=== PATIENT | female | born 1980 | race Caucasian/White ===

== ENCOUNTER 2024-11-22 19:53 | Emergency (ER) | payer MEDICAID, SELFPAY ==
[2024-11-22] VITALS (7 sets, daily range): BP systolic 98–115; BP diastolic 60–69; PULSE 77–114; TEMP 37.5–39.2; O2SAT 91–95
--- NOTE | 2024-11-22 20:14 | ED_ITS ---
HPI - URI/Sore Throat General Chief Complaint: Upper Respiratory Infection Stated Complaint: SOB, COUGHING, ACHING Time Seen by Provider: 11/22/24 20:10 Source: patient History of Present Illness HPI Narrative: multiple substance use disorder including smoking crack cocaine and snorting fentanyl. Came here from [facility]. Smokes cigarettes and states past history of pneumonia. Complains of coughing more than her usual. Now has left sided rib pain from cough. Has a fever also. No abdominal pain but does feel short of breath. past IVDA Related Data Allergies Allergy/AdvReac Type Severity Reaction Status Date / Time diphenhydramine (From Allergy Severe Anaphylaxis Verified 11/22/24 20:06 Benadryl) Sulfa (Sulfonamide Allergy Severe Hives Verified 11/22/24 20:06 Antibiotics) Review of Systems ROS Status of ROS 10 or more systems reviewed and unremark able except as noted in history and below PFSH PFSH Social History Little interest or pleasure in doing things: not at all Feeling down, depressed, or hopeless: not at all Exam Constitutional Vital Signs, click to edit/add: Last Vital Signs Temp 99.5 F 11/22/24 21:41 Pulse 77 11/22/24 23:03 Resp 20 11/22/24 23:03 BP 109/69 11/22/24 23:03 Pulse Ox 95 11/22/24 23:03 O2 Del Method Room Air 11/22/24 23:03 Common normals: no apparent distress, oriented x3, no limitations and alert HENMT Common normals: normocephalic and head/scalp atraumatic Eye Common normals: EOMs intact bilaterally and conjunctivae normal Chest Other: left chest wall tender Respiratory Common normals: normal respiratory effort, no retractions and no use of accessory muscles Other: faint rhonchi right chest Cardio Common normals: regular rate, regular rhythm, S1 normal heart sound and S2 normal heart sound GI Common normals: Normal to inspection, nondistended, normoactive bowel sounds present, soft to palpation and non-tender Extremity Common normals: normal to inspection and full ROM Neuro Common normals: oriented x3, CN's II-XII intact bilaterally, moves all extremities and no focal motor deficits Psych Appearance: grossly normal Course Vital Signs Vital signs: Vital Signs Temperature 102.6 F H 11/22/24 20:01 Pulse Rate 114 H 11/22/24 20:01 Respiratory Rate 20 11/22/24 20:01 Blood Pressure 112/68 11/22/24 20:01 Pulse Oximetry 92 L 11/22/24 20:01 Oxygen Delivery Method Room Air 11/22/24 20:01 Temperature 99.5 F 11/22/24 21:41 Pulse Rate 77 11/22/24 23:03 Respiratory Rate 20 11/22/24 23:03 Blood Pressure 109/69 11/22/24 23:03 Pulse Oximetry 95 11/22/24 23:03 Oxygen Delivery Method Room Air 11/22/24 23:03 MDM - URI/Sore Throat MDM Narrative Medical decision making narrative: history of substance abuse. Patient at the local detox center. Presents here ill couple of days with cough and feeling short of breath. RA pulse ox 95%. RR 20 and no sign of respiratory distress. Fever responded nicely to ibuprofen and tachycardia resolved after hydration. cxray with bilat infiltrates. Patient states before she came here the detox center checked her for COVID19 and it was neg. She did not want to repeat COVID 19 testing here. Patient advised that she has extensive pneumonia in both chest. She however is not wanting to stay over night. Given dose of Rocephin and zithomax. At discharge she was resting comfortably. Adivsed close follow up and the need to return if she feel more short of breath. Discharged with a prescription of zpak and ceftin Lab Data Labs: Lab Results 11/22/24 Range/Units 20:27 WBC 10.8 (4.0-11.0) 10^3/uL RBC 4.84 (4.20-5.40) 10^6/uL Hgb 14.4 (12.0-16.0) g/dL Hct 42.0 (36.0-48.0) % MCV 86.8 (81.0-99.0) fL MCH 29.8 (26.7-34.0) pg MCHC 34.3 (29.9-35.2) g/dL RDW 13.9 (11.0-15.0) % Plt Count 187 (150-450) 10^3/uL MPV 10.1 (9.5-13.5) fL Neut % (Auto) 88.9 H (43.0-75.0) % Lymph % (Auto) 6.7 L (20.5-60.0) % Harris % (Auto) 2.9 (1.7-12.0) % Eos % (Auto) 0.8 L (0.9-7.0) % Baso % (Auto) 0.2 (0.2-2.0) % Neut # (Auto) 9.6 H (1.4-6.5) 10^3/uL Lymph # (Auto) 0.7 L (1.2-3.8) 10^3/uL Harris # (Auto) 0.3 (0.3-0.8) 10^3/uL Eos # (Auto) 0.1 (0.0-0.7) 10^3/uL Baso # (Auto) 0.0 (0.0-0.1) 10^3/uL Abs Immat Gran (auto) 0.05 H (0.00-0.03) 10^3/uL Imm/Tot Granulo (auto) 0.5 (0.0-0.5) % Sodium 137 (136-145) mmol/L Potassium 4.2 (3.5-5.1) mmol/L Chloride 103 (98-107) mmol/L Carbon Dioxide 26.8 (21.0-32.0) mmol/L Anion Gap 11.4 BUN 13.0 (7.0-18.0) mg/dL Creatinine 0.71 (0.55-1.02) mg/dL Est GFR ( Amer) >60 (>=60 mL/min/1.73m^2) Est GFR (Non-Af Amer) >60 (>=60 mL/min/1.73m^2) BUN/Creatinine Ratio 18.3 Glucose 134 H (74-106) mg/dL Lactate 1.6 (0.4-2.0) mmol/L Calcium 8.7 (8.5-10.1) mg/dL Troponin I High Sens 5.3 (4.0-51.3) pg/mL Discharge Plan Discharge Chief Complaint: Upper Respiratory Infection Clinical Impression: Bilateral pneumonia Patient Disposition: Home, Self-Care Print Language: Egyptian Instructions: Community Acquired Pneumonia (ED) Additional Instructions: follow up with family doctor next week. Return if short of breath Referrals: Physician,Non-Staff, MD [Primary Care Provider] - 1 week
[2024-11-22] MEDS: 0.9 % SODIUM CHLORIDE 1,000 ML 999 ML IV (20:33)
[2024-11-22] MEDS: IPRATROPIUM/ALBUTEROL SULFATE 3 ML AMPUL.NEB IH (20:41)
[2024-11-22] MEDS: IBUPROFEN 400 MG TABLET 800 MG PO (20:50)
[2024-11-22 21:05] LABS: Hematocrit 42.0 % (36.0-48.0); Hemoglobin 14.4 g/dL (12.0-16.0); Immature Granulocytes Abs Auto 0.05 10^3/uL (0.00-0.03); Immature Granulocytes Pct Auto 0.5 % (0.0-0.5); Lymphocytes Absolute Auto 0.7 10^3/uL (1.2-3.8); Mean Corpuscular HGB Conc 34.3 g/dL (29.9-35.2); Mean Corpuscular Hemoglobin 29.8 pg (26.7-34.0); Mean Corpuscular Volume 86.8 fL (81.0-99.0); Platelet Count 187 10^3/uL (150-450); Red Blood Count 4.84 10^6/uL (4.20-5.40); White Blood Count 10.8 10^3/uL (4.0-11.0)
[2024-11-22 21:13] LABS: Lactate/Lactic Acid 1.6 mmol/L (0.4-2.0)
[2024-11-22 21:16] LABS: Anion Gap 11.4; Blood Urea Nitrogen 13.0 mg/dL (7.0-18.0); Calcium 8.7 mg/dL (8.5-10.1); Carbon Dioxide 26.8 mmol/L (21.0-32.0); Chloride 103 mmol/L (98-107); Estimated GFR (African America >60 (>=60 mL/min/1.73m^2); Estimated GFR (Non-African Ame >60 (>=60 mL/min/1.73m^2); Glucose 134 mg/dL (74-106); Potassium 4.2 mmol/L (3.5-5.1); Sodium 137 mmol/L (136-145)
[2024-11-22] MEDS: AZITHROMYCIN 500 MG in 0.9 % SODIUM CHLORIDE 250 ML 250 MG IV (23:02)
== END 2024-11-23 00:14 | disposition home or self-care (01) ==
PROVIDERS: Emergency Provider Internal Medicine
DX: J18.8 Other pneumonia, unspecified organism (principal); R05.9 Cough, unspecified; R50.9 Fever, unspecified; R06.02 Shortness of breath
CPT/HCPCS: 36415; 71046; 80048; 83605; 84484; 85025; 87040; 87811; 94640; 96365; 96367; 99285; J0456; J0696